=== PATIENT | female | born 1970 | race Caucasian/White ===

== ENCOUNTER 2017-07-20 01:07 | Emergency (ER) | payer MEDICAID ==
[2017-07-20 01:32] LABS: APPEARANCE CLEAR (CLEAR); BILIRUBIN NEGATIVE (NEGATIVE); COLOR STRAW (YELLOW); GLUCOSE NEGATIVE (NEGATIVE); KETONE NEGATIVE (NEGATIVE); NITRITE NEGATIVE (NEGATIVE); PROTEIN NEGATIVE (NEGATIVE); SPECIFIC GRAVITY 1.005 (1.005-1.020); UROBILINOGEN NORMAL (NORMAL)
[2017-07-20 01:49] LABS: BASOPHILS 2.5 % (0-2); EOSINOPHILS 1.2 % (0-7); HEMATOCRIT 38.2 % (36.0-48.0); HEMOGLOBIN 13.3 g/dL (12-16); IMMATURE GRANULOCYTES 0.3 % (0-5); MCH 33.2 pg (26.0-34.0); MCHC 34.8 g/dL (31.0-37.0); MCV 95.3 fL (80.0-100.0); MEAN PLATELET VOLUME 10.5 fL (7.4-10.4); RBC 4.01 10x6/uL (4.00-5.40); RDW 13.3 % (11.5-14.5)
[2017-07-20 01:51] LABS: PLATELET COUNT 245 10x3/uL (130-400)
[2017-07-20 02:06] LABS: ALBUMIN 3.8 g/dL (3.4-5.0); ALKALINE PHOSPHATASE 75 U/L (46-116); ALT (SGPT) 117 U/L (10-68); AMYLASE - SERUM 65 U/L (25-115); BILIRUBIN - TOTAL 0.27 mg/dL (0.2-1.3); CALC OSMOLALITY 274 mosm/kg (275-300); CALCIUM 8.6 mg/dL (8.5-10.1); CARBON DIOXIDE 21.1 mmol/L (21.0-32.0); CHLORIDE - SERUM 106 mmol/L (98-107); CREATININE - SERUM 0.7 mg/dL (0.6-1.3); GLUCOSE 96 mg/dL (74-106); LIPASE 202 U/L (73-393); POTASSIUM - SERUM 3.6 mmol/L (3.5-5.1); SODIUM 139 mmol/L (136-145); UREA NITROGEN 5 mg/dL (7-18); eGFR NON AFRICAN AMERICAN > 90 mL/min (90-120)
== END 2017-07-20 03:49 | disposition home or self-care (01) ==
LOC: D.ER 01:07
PROVIDERS: Family Medicine
DX: N83.209 Unspecified ovarian cyst, unspecified side (principal); C53.9 Malignant neoplasm of cervix uteri, unspecified; F17.200 Nicotine dependence, unspecified, uncomplicated

== ENCOUNTER 2017-08-05 22:14 | Emergency (ER) | payer MEDICAID ==
[2017-08-05 22:46] LABS: EOSINOPHILS 4.2 % (0-7); HEMATOCRIT 39.4 % (36.0-48.0); HEMOGLOBIN 13.6 g/dL (12-16); IMMATURE GRANULOCYTES 0.2 % (0-5); LYMPHOCYTES 59.3 % (15-50); MCH 33.6 pg (26.0-34.0); MCHC 34.5 g/dL (31.0-37.0); MCV 97.3 fL (80.0-100.0); MONOCYTES 10.5 % (2-11); NEUTROPHILS 23.8 % (40-80); PLATELET COUNT 233 10x3/uL (130-400); RBC 4.05 10x6/uL (4.00-5.40); RDW 13.7 % (11.5-14.5); WBC 5.4 10x3/uL (4.8-10.8)
[2017-08-05 23:00] LABS: ALBUMIN 3.9 g/dL (3.4-5.0); ALKALINE PHOSPHATASE 88 U/L (46-116); ALT (SGPT) 91 U/L (10-68); AMYLASE - SERUM 76 U/L (25-115); BILIRUBIN - TOTAL 0.43 mg/dL (0.2-1.3); CALC OSMOLALITY 276 mosm/kg (275-300); CALCIUM 8.8 mg/dL (8.5-10.1); CARBON DIOXIDE 26.5 mmol/L (21.0-32.0); CHLORIDE - SERUM 103 mmol/L (98-107); CREATININE - SERUM 0.7 mg/dL (0.6-1.3); GLUCOSE 92 mg/dL (74-106); LIPASE 236 U/L (73-393); POTASSIUM - SERUM 3.7 mmol/L (3.5-5.1); PROTEIN - SERUM 8.1 g/dL (6.4-8.2); SODIUM 139 mmol/L (136-145); UREA NITROGEN 9 mg/dL (7-18); eGFR NON AFRICAN AMERICAN > 90 mL/min (90-120)
== END 2017-08-05 23:35 | disposition home or self-care (01) ==
LOC: D.ER 22:14
PROVIDERS: Emergency Medicine
DX: R10.9 Unspecified abdominal pain (principal); Z85.41 Personal history of malignant neoplasm of cervix uteri; F17.200 Nicotine dependence, unspecified, uncomplicated

== ENCOUNTER 2017-11-03 17:40 | Emergency (ER) | payer MEDICAID ==
[~2017-11-03] VITALS: Ht 160 cm; Wt 53.2 kg
[2017-11-03 18:01] VITALS: Ht 160 cm; Wt 53.2 kg
[2017-11-03 18:29] LABS: BASOPHILS 1.1 % (0-2); EOSINOPHILS 3.3 % (0-7); HEMATOCRIT 38.7 % (36.0-48.0); HEMOGLOBIN 13.4 g/dL (12-16); IMMATURE GRANULOCYTES 0.4 % (0-5); LYMPHOCYTES 48.4 % (15-50); MCH 34.1 pg (26.0-34.0); MCHC 34.6 g/dL (31.0-37.0); MCV 98.5 fL (80.0-100.0); MEAN PLATELET VOLUME 10.8 fL (7.4-10.4); MONOCYTES 6.8 % (2-11); PLATELET COUNT 232 10x3/uL (130-400); RBC 3.93 10x6/uL (4.00-5.40); RDW 13.8 % (11.5-14.5); WBC 7.4 10x3/uL (4.8-10.8)
[2017-11-03 18:59] LABS: ALBUMIN 3.7 g/dL (3.4-5.0); ALKALINE PHOSPHATASE 91 U/L (46-116); ALT (SGPT) 76 U/L (10-68); BILIRUBIN - TOTAL 0.17 mg/dL (0.2-1.3); CALC OSMOLALITY 278 mosm/kg (275-300); CALCIUM 9.1 mg/dL (8.5-10.1); CARBON DIOXIDE 21.9 mmol/L (21.0-32.0); CHLORIDE - SERUM 107 mmol/L (98-107); CREATININE - SERUM 0.7 mg/dL (0.6-1.3); GLUCOSE 103 mg/dL (74-106); LIPASE 206 U/L (73-393); POTASSIUM - SERUM 3.4 mmol/L (3.5-5.1); PROTEIN - SERUM 7.9 g/dL (6.4-8.2); SODIUM 141 mmol/L (136-145); UREA NITROGEN 8 mg/dL (7-18); eGFR NON AFRICAN AMERICAN > 90 mL/min (90-120)
[2017-11-03 19:21] LABS: APPEARANCE CLEAR (CLEAR); BILIRUBIN NEGATIVE (NEGATIVE); COLOR STRAW (YELLOW); GLUCOSE NEGATIVE (NEGATIVE); KETONE NEGATIVE (NEGATIVE); NITRITE NEGATIVE (NEGATIVE); PROTEIN NEGATIVE (NEGATIVE); UROBILINOGEN NORMAL (NORMAL)
[2017-11-03 19:47] LABS: UDS - AMPHET NEGATIVE QUAL (NEGATIVE); UDS - BARB NEGATIVE QUAL (NEGATIVE); UDS - BENZO NEGATIVE QUAL (NEGATIVE); UDS - COCAINE NEGATIVE QUAL (NEGATIVE); UDS - OPIATE NEGATIVE QUAL (NEGATIVE); UDS - PCP NEGATIVE QUAL (NEGATIVE); UDS - THC NEGATIVE QUAL (NEGATIVE)
[2017-11-03] MEDS ORDERED: IBUPROFEN800 MG PO (20:42)
[2017-11-03 20:58] VITALS: BP 133/82
== END 2017-11-03 20:53 | disposition home or self-care (01) ==
LOC: D.ER 17:40
PROVIDERS: Family Medicine
DX: R10.9 Unspecified abdominal pain (principal); F10.129 Alcohol abuse with intoxication, unspecified; N28.89 Other specified disorders of kidney and ureter; C53.9 Malignant neoplasm of cervix uteri, unspecified; F17.200 Nicotine dependence, unspecified, uncomplicated

== ENCOUNTER 2017-11-21 12:25 | Emergency (ER) | payer MEDICAID ==
[~2017-11-21] VITALS: Ht 160 cm; Wt 56.7 kg
[~2017-11-21 12:25] MED LIST: IBUPROFEN800 MG PO
[2017-11-21 12:37] VITALS: Ht 160 cm; Wt 56.7 kg
[2017-11-21 13:57] LABS: HEMATOCRIT 37.9 % (36.0-48.0); HEMOGLOBIN 13.8 g/dL (12-16); MCHC 36.4 g/dL (31.0-37.0); MCV 96.2 fL (80.0-100.0); MEAN PLATELET VOLUME 10.5 fL (7.4-10.4); PLATELET COUNT 187 10x3/uL (130-400); RBC 3.94 10x6/uL (4.00-5.40); RDW 13.1 % (11.5-14.5)
[2017-11-21 13:57] LABS: UDS - AMPHET NEGATIVE QUAL (NEGATIVE); UDS - BARB NEGATIVE QUAL (NEGATIVE); UDS - BENZO NEGATIVE QUAL (NEGATIVE); UDS - COCAINE NEGATIVE QUAL (NEGATIVE); UDS - OPIATE NEGATIVE QUAL (NEGATIVE); UDS - PCP NEGATIVE QUAL (NEGATIVE); UDS - THC NEGATIVE QUAL (NEGATIVE)
[2017-11-21 14:12] LABS: ALBUMIN 3.7 g/dL (3.4-5.0); ALKALINE PHOSPHATASE 90 U/L (46-116); ALT (SGPT) 102 U/L (10-68); BILIRUBIN - TOTAL 0.36 mg/dL (0.2-1.3); CALC OSMOLALITY 274 mosm/kg (275-300); CALCIUM 8.1 mg/dL (8.5-10.1); CARBON DIOXIDE 23.5 mmol/L (21.0-32.0); CHLORIDE - SERUM 105 mmol/L (98-107); CREATININE - SERUM 0.8 mg/dL (0.6-1.3); GLUCOSE 92 mg/dL (74-106); LIPASE 144 U/L (73-393); PROTEIN - SERUM 7.8 g/dL (6.4-8.2); SODIUM 139 mmol/L (136-145); UREA NITROGEN 3 mg/dL (7-18); eGFR NON AFRICAN AMERICAN 81 mL/min (90-120)
[2017-11-21 14:20] LABS: BASOPHILS 1 % (0-2); EOSINOPHILS 3 % (0-7); LYMPHOCYTES 46 % (15-50); MONOCYTES 11 % (2-11); NEUTROPHILS 38 % (40-80); PLATELET ESTIMATE NORMAL
[2017-11-21 19:26] LABS: POTASSIUM - SERUM 3.3 mmol/L (3.5-5.1)
[2017-11-22 00:21] LABS: POTASSIUM - SERUM 3.5 mmol/L (3.5-5.1)
[2017-11-22 01:59] VITALS: BP 103/72
== END 2017-11-22 02:55 ==
LOC: D.ER 12:25
PROVIDERS: Emergency Medicine; Family Medicine
DX: R45.851 Suicidal ideations (principal); F10.129 Alcohol abuse with intoxication, unspecified; E87.6 Hypokalemia; C55 Malignant neoplasm of uterus, part unspecified; Z85.41 Personal history of malignant neoplasm of cervix uteri; Z85.528 Personal history of other malignant neoplasm of kidney

== ENCOUNTER 2017-12-24 08:31 | Emergency (ER) | payer MEDICAID ==
[~2017-12-24] VITALS: Ht 160 cm; Wt 53.2 kg
[2017-12-24 08:36] VITALS: Ht 160 cm; Wt 53.2 kg
[2017-12-24] MEDS ORDERED: CYCLOBENZAPRINE10 MG PO (09:18)
[2017-12-24 09:35] VITALS: BP 110/73
== END 2017-12-24 09:35 | disposition home or self-care (01) ==
LOC: D.ER 08:31
DX: M43.6 Torticollis (principal); Z85.41 Personal history of malignant neoplasm of cervix uteri; F17.200 Nicotine dependence, unspecified, uncomplicated

== ENCOUNTER → 2018-01-06 14:07 | Outpatient (CLI) | payer MEDICAID ==
[2017-12-24 08:36] VITALS: BMI 20.7
[~2018-01-06 14:07] MED LIST changes: +CYCLOBENZAPRINE10 MG PO; +REMERON45 MG PO
== END | disposition home or self-care (01) ==
LOC: D.MRI 14:07
DX: M54.2 Cervicalgia (principal)

== ENCOUNTER 2018-01-06 15:06 | Emergency (ER) | payer MEDICAID ==
[~2018-01-06] VITALS: Ht 160 cm; Wt 52.7 kg
[~2018-01-06 15:06] MED LIST changes: -REMERON45 MG PO
[2018-01-06 15:11] VITALS: Ht 160 cm; Wt 52.7 kg
[2018-01-06] MEDS ORDERED: REMERON45 MG PO (15:15)
[2018-01-06 17:22] VITALS: BP 154/76
== END 2018-01-06 16:45 | disposition home or self-care (01) ==
LOC: D.ER 15:06
DX: M54.2 Cervicalgia (principal); Z85.520 Personal history of malignant carcinoid tumor of kidney; Z85.41 Personal history of malignant neoplasm of cervix uteri; F17.200 Nicotine dependence, unspecified, uncomplicated

== ENCOUNTER 2018-01-07 23:33 | Emergency (ER) | payer MEDICAID ==
[~2018-01-07] VITALS: Ht 160 cm; Wt 54.5 kg
[~2018-01-07 23:33] MED LIST changes: +REMERON45 MG PO
[2018-01-07 23:35] VITALS: BP 134/82; Ht 160 cm; Wt 54.5 kg
== END 2018-01-08 00:18 | disposition left against medical advice (07) ==
LOC: D.ER 23:33
DX: R45.5 Hostility (principal); Z76.5 Malingerer [conscious simulation]; M79.1 Myalgia; G40.909 Epilepsy, unspecified, not intractable, without status epilepticus; F17.200 Nicotine dependence, unspecified, uncomplicated

== ENCOUNTER 2018-04-02 12:38 | Emergency (ER) | payer MEDICAID ==
[~2018-04-02] VITALS: Ht 160 cm; Wt 54.5 kg
[2018-04-02 13:07] VITALS: Ht 160 cm; Wt 54.5 kg
[2018-04-02 13:27] LABS: BASOPHILS 0.4 % (0-2); EOSINOPHILS 0.2 % (0-7); HEMATOCRIT 41.9 % (36.0-48.0); HEMOGLOBIN 14.5 g/dL (12-16); IMMATURE GRANULOCYTES 0.2 % (0-5); LYMPHOCYTES 8.6 % (15-50); MCH 32.2 pg (26.0-34.0); MCHC 34.6 g/dL (31.0-37.0); MCV 93.1 fL (80.0-100.0); MEAN PLATELET VOLUME 10.3 fL (7.4-10.4); NEUTROPHILS 83.6 % (40-80); PLATELET COUNT 193 10x3/uL (130-400); RDW 12.9 % (11.5-14.5); WBC 12.7 10x3/uL (4.8-10.8)
[2018-04-02 13:34] LABS: APPEARANCE TURBID (CLEAR); BILIRUBIN NEGATIVE (NEGATIVE); COLOR YELLOW (YELLOW); GLUCOSE NEGATIVE (NEGATIVE); KETONE NEGATIVE (NEGATIVE); NITRITE POSITIVE (NEGATIVE); PROTEIN 2+ mg/dL (NEGATIVE); UROBILINOGEN NORMAL (NORMAL)
[2018-04-02 13:36] LABS: AMORPHOUS SEDIMENT <1+ /lpf (NONE SEEN); BACTERIA MANY /hpf (NONE SEEN); EPITHELIAL CELLS 0-5 /hpf (0-5); MUCUS <1+ /lpf (NONE SEEN); WHITE CELLS - URINE >50 /hpf (0-5)
[2018-04-02 13:41] LABS: ALBUMIN 3.7 g/dL (3.4-5.0); ALKALINE PHOSPHATASE 82 U/L (46-116); ALT (SGPT) 61 U/L (10-68); BILIRUBIN - TOTAL 1.03 mg/dL (0.2-1.3); CALC OSMOLALITY 267 mosm/kg (275-300); CALCIUM 8.7 mg/dL (8.5-10.1); CARBON DIOXIDE 23.6 mmol/L (21.0-32.0); CHLORIDE - SERUM 100 mmol/L (98-107); CREATININE - SERUM 0.8 mg/dL (0.6-1.3); GLUCOSE 108 mg/dL (74-106); POTASSIUM - SERUM 3.2 mmol/L (3.5-5.1); SODIUM 134 mmol/L (136-145); UREA NITROGEN 9 mg/dL (7-18); eGFR NON AFRICAN AMERICAN 81 mL/min (90-120)
[2018-04-02] MEDS ORDERED: FLAGYL500 MG PO (14:21)
[2018-04-02] MEDS ORDERED: MACROBID100 MG PO (14:21)
[2018-04-02] MEDS ORDERED: K-TAB10 MEQ PO (15:00)
[2018-04-02 15:50] VITALS: BP 118/68
== END 2018-04-02 15:53 | disposition home or self-care (01) ==
LOC: D.ER 12:38
PROVIDERS: Emergency Medicine
DX: N39.0 Urinary tract infection, site not specified (principal); N76.0 Acute vaginitis; B96.89 Other specified bacterial agents as the cause of diseases classified elsewhere; R11.0 Nausea; R51 Headache; R35.0 Frequency of micturition; Z85.41 Personal history of malignant neoplasm of cervix uteri; F17.200 Nicotine dependence, unspecified, uncomplicated

== ENCOUNTER 2018-04-26 11:23 | Inpatient (IN) | payer SELFPAY ==
[~2018-04-26] VITALS: Ht 160 cm; Wt 54.4 kg
--- NOTE | ~2018-04-26 | MORECARE ---
CASE MANAGEMENT DISCHARGE SUMMARY PATIENT: RICKI AREVALO UNIT: [id number] ADM DATE: 04/26/18 AGE: 47 : 70 SEX: F ROOM/BED: D.4443 AUTHOR: LYDOC PHYSICIAN: REFERRING PHYSICIAN: BLU WALLER MD DATE OF SERVICE: 04/28/18 Discharge Plan Patient Name: RICKI AREVALO Facility: [facility]:[place] : 1970 Planned Disposition: Home Anticipated Discharge Date: Discharge Date: Expected LOS: Initial Reviewer: [id number] Initial Review Date: 04/26/2018 Generated: 04/28/18 9:18 am Comments DCP- Discharge Planning Updated by [email or web address]: Sánchez Feliciano on 04/28/18 7:[address] Patient Name: RICKI AREVALO Encounter No: [id number] : 1970 Primary Insurance: UNINSURED DISCOUNT PLAN Anticipated DC Date: Planned Disposition: Home DCP follow-up note: PT PLANS TO DISCHARGE HOME WITH SPOUSE, PT HAS NO ANTICIPATED DISCHARGE NEEDS. CM TO FOLLOW AND ASSIST IF NEEDED. CM FAXED LETTER TO [facility] AT [phone], REQUESTED BY PT 04-27-18. Children'S Entertainer: Sánchez Feliciano DCP- Discharge Planning Updated by [id number]: Sánchez Feliciano on 04/27/18 3:[address] Patient Name: RICKI AREVALO Admission Status: ER Accout number: [id number] Admission Date: 04-26-2018 : 1970 Admission Diagnosis: Attending: BLU WALLER Current LOS: 1 Anticipated DC Date: Planned Disposition: Home Primary Insurance: UNINSURED DISCOUNT PLAN Discharge Planning Comments: CM RECEIVED REQUEST FOR PT TO GET LETTER FOR HER DAUGHTER TO TAKE TO COURT THAT WOULD INDICATE PT IS IN HOSPITAL FOR COURT DATE OF TOMORROW THAT PT IS REQUIRED TO ATTEND IN THE [facility] COURT. CM MET WITH PT IN ROOM TO DISCUSS DISCHARGE PLANNING AND NEEDS. PT REPORTS LIVING AT HOME INDEPENDENTLY WITH HER SPOUSE. PT HAS NO MEDICAL EQUIPMENT AND NO OUTSIDE SERVICES ASSISTING IN THE HOME. CM DISCUSSED AVAILABILITY OF HOME HEALTH, REHAB SERVICES AND MEDICAL EQUIPMENT. PT DENIES DISCHARGE NEEDS, REPORTS HER SPOUSE WILL PICK HER UP FOR DISCHARGE HOME. CM PROVIDED REQUESTED LETTER INDICATING PT IS HOSPITAL TODAY FOR [facility]. PT PLANS TO DISCHARGE HOME WITH SPOUSE, PT HAS NOT ANTICIPATED DISCHARGE NEEDS. CM TO FOLLOW AND ASSIST IF NEEDED. CM WILL FAX LETTER TO [facility] ON 04-28-18 IF PT IS STILL IN THE HOSPTIAL. FAX IS [phone]. Children'S Entertainer: Sánchez Feliciano DCPIA - Discharge Planning Initial Assessment Updated by [id number]: Sánchez Feliciano on 04/27/18 4:48 pm * Is the patient Alert and Oriented? Yes * How many steps to enter\exit or inside your home? NONE * PCP DR. PRIETO * Pharmacy [facility] * Preadmission Environment Home with Family * ADLs Independent * Equipment None * Other Equipment NO MEDICAL EQUIPMENT PROVIDER PREFERENCE * List name and contact numbers for known caregivers / representatives who currently or will assist patient after discharge: VEENA NGUYEN, SPOUSE, * Verbal permission to speak to the caregivers and representatives has been obtained from the patient. Yes * Community resources currently utilized None * Please name any agencies selected above. NONE * Additional services required to return to the preadmission environment? No * Can the patient safely return to the preadmission environment? Yes * Has this patient been hospitalized within the prior 30 days at any hospital? No Last DP export: 04/27/18 3:57 Patient Name: RICKI AREVALO Page 42748 at 0818 All edits/amendments must be made on the electronic document DICTATION DATE: 04/28/18816 WINDOWS SERVER SPECIALIST: MORIAH 04/28/18816 RPT#: [id number] DC DATE: STATUS: ADM IN [facility] [address] [place] [address] END OF REPORT
--- NOTE | ~2018-04-26 | MORECARE ---
CASE MANAGEMENT DISCHARGE SUMMARY PATIENT: RICKI AREVALO UNIT: [id number] ADM DATE: 04/26/18 AGE: 47 : 70 SEX: F ROOM/BED: D.1548 AUTHOR: LY,DOC PHYSICIAN: REFERRING PHYSICIAN: BLU WALLER MD DATE OF SERVICE: 04/29/18 Discharge Plan Patient Name: RICKI AREVALO Facility: [facility]:[place] : 1970 Planned Disposition: Home Anticipated Discharge Date: 04/29/18 Discharge Date: 04/29/2018 Expected LOS: 3 Initial Reviewer: [id number] Initial Review Date: 04/26/2018 Generated: 04/29/18 6:24 pm Comments DCP- Discharge Planning Updated by [id number]: Sánchez Mendosa on 04/29/18 4:[address] Patient Name: RICKI AREVALO Encounter No: [id number] : 1970 Primary Insurance: UNINSURED DISCOUNT PLAN Anticipated DC Date: 04-29-2018 Planned Disposition: Home DCP follow-up note: CM SPOKE TO BEDSIDE NURSE WHO INFORMED CM THAT PT WANTED TO SPEAK TO CM REGARDING NEED OF MEDICAL INSURANCE. CM SPOKE TO PT IN ROOM WHO REPORTS SHE HAD INSURANCE UNTIL March AND WOULD LIKE TO APPLY FOR MEDICAID AND THINKS SOMEONE AT THE HOSPITAL WILL DO THIS FOR HER. CM SPOKE TO LEE OF MED DATA AT [facility] WHO ADVISED CM THAT PT WAS NON COMPLIANT WITH THE WORK REQUIREMENT FOR THE PAST THREE MONTHS AND IS INELIGIBLE TO APPLY FOR MEDICAID UNTIL MAY 17, 2018. PT NOTIFIED. CM PROVIDED PT WITH [employer] INFORMATION WELL INSURANCE BROKERS LISTED ON WEBSITE TO ASSIST PT WITH GETTING INSURANCE. CM ADVISED PT THAT OPEN ENROLLMENT ENDS TOMORROW AND PT NEEDS TO ACT TODAY. PT STATES SHE WILL CALL HER QUALCHOICE PROVIDER FIRST TO SEE IF THEY CAN HELP AND IF NOT, CONTACT [employer] DEBRANDER. PT DENIES FURHTER NEEDS, SPOUSE TO TRANSPORT HOME AT DISCHARGE. SÁNCHEZ MENDOSA, CASE MANAGEMENT DCP- Discharge Planning Updated by [id number]: Sánchez Mendosa on 04/28/18 7:[address] Patient Name: RICKI AREVALO Encounter No: [id number] : 1970 Primary Insurance: UNINSURED DISCOUNT PLAN Anticipated DC Date: Planned Disposition: Home DCP follow-up note: PT PLANS TO DISCHARGE HOME WITH SPOUSE, PT HAS NO ANTICIPATED DISCHARGE NEEDS. CM TO FOLLOW AND ASSIST IF NEEDED. CM FAXED LETTER TO [facility] AT [phone], REQUESTED BY PT 04-27-18. Crime Scene Examiner: Sánchez Mendosa DCP- Discharge Planning Updated by [email or web address]: Sánchez Mendosa on 04/27/18 3:[address] Patient Name: RICKI AREVALO Admission Status: ER Accout number: [id number] Admission Date: 04-26-2018 : 1970 Admission Diagnosis: Attending: BLU WALLER Current LOS: 1 Anticipated DC Date: Planned Disposition: Home Primary Insurance: UNINSURED DISCOUNT PLAN Discharge Planning Comments: CM RECEIVED REQUEST FOR PT TO GET LETTER FOR HER DAUGHTER TO TAKE TO COURT THAT WOULD INDICATE PT IS IN HOSPITAL FOR COURT DATE OF TOMORROW THAT PT IS REQUIRED TO ATTEND IN THE [facility]. CM MET WITH PT IN ROOM TO DISCUSS DISCHARGE PLANNING AND NEEDS. PT REPORTS LIVING AT HOME INDEPENDENTLY WITH HER SPOUSE. PT HAS NO MEDICAL EQUIPMENT AND NO OUTSIDE SERVICES ASSISTING IN THE HOME. CM DISCUSSED AVAILABILITY OF HOME HEALTH, REHAB SERVICES AND MEDICAL EQUIPMENT. PT DENIES DISCHARGE NEEDS, REPORTS HER SPOUSE WILL PICK HER UP FOR DISCHARGE HOME. CM PROVIDED REQUESTED LETTER INDICATING PT IS HOSPITAL TODAY FOR [facility]. PT PLANS TO DISCHARGE HOME WITH SPOUSE, PT HAS NOT ANTICIPATED DISCHARGE NEEDS. CM TO FOLLOW AND ASSIST IF NEEDED. CM WILL FAX LETTER TO [facility] ON 04-28-18 IF PT IS STILL IN THE HOSPTIAL. FAX IS [phone]. Crime Scene Examiner: Sánchez Mendosa DCPIA - Discharge Planning Initial Assessment Updated by [id number]: Sánchez Mendosa on 04/27/18 4:48 pm * Is the patient Alert and Oriented? Yes * How many steps to enter\exit or inside your home? NONE * PCP DR. PRIETO * Pharmacy [facility] * Preadmission Environment Home with Family * ADLs Independent * Equipment None * Other Equipment NO MEDICAL EQUIPMENT PROVIDER PREFERENCE * List name and contact numbers for known caregivers / representatives who currently or will assist patient after discharge: VEENA NGUYEN, SPOUSE, * Verbal permission to speak to the caregivers and representatives has been obtained from the patient. Yes * Community resources currently utilized None * Please name any agencies selected above. NONE * Additional services required to return to the preadmission environment? No * Can the patient safely return to the preadmission environment? Yes * Has this patient been hospitalized within the prior 30 days at any hospital? No Last DP export: 04/28/18 7:18 Patient Name: RICKI AREVALO Page [id number] at 1724 All edits/amendments must be made on the electronic document DICTATION DATE: 04/29/181723 DESIGN ANALYST: MORIAH 04/29/181723 RPT#: [id number] DC DATE:04/29/18 STATUS: DIS IN [facility] [address] [place] [address] END OF REPORT
--- NOTE | ~2018-04-26 | MORECARE ---
CASE MANAGEMENT DISCHARGE SUMMARY PATIENT: RICKI AREVALO UNIT: [id number] ADM DATE: 04/26/18 AGE: 47 : 70 SEX: F ROOM/BED: D.2709 AUTHOR: LY,DOC PHYSICIAN: REFERRING PHYSICIAN: BLU WALLER MD DATE OF SERVICE: 04/27/18 Discharge Plan Patient Name: RICKI AREVALO Facility: [facility]:[place] : 1970 Planned Disposition: Home Anticipated Discharge Date: Discharge Date: Expected LOS: Initial Reviewer: [email or web address] Initial Review Date: 04/26/2018 Generated: 04/27/18 5:57 pm Comments DCP- Discharge Planning Updated by [id number]: Sánchez Feliciano on 04/27/18 3:[address] Patient Name: RICKI AREVALO Admission Status: ER Accout number: [id number] Admission Date: 04-26-2018 : 1970 Admission Diagnosis: Attending: BLU WALLER Current LOS: 1 Anticipated DC Date: Planned Disposition: Home Primary Insurance: UNINSURED DISCOUNT PLAN Discharge Planning Comments: CM RECEIVED REQUEST FOR PT TO GET LETTER FOR HER DAUGHTER TO TAKE TO COURT THAT WOULD INDICATE PT IS IN HOSPITAL FOR COURT DATE OF TOMORROW THAT PT IS REQUIRED TO ATTEND IN THE [facility]. CM MET WITH PT IN ROOM TO DISCUSS DISCHARGE PLANNING AND NEEDS. PT REPORTS LIVING AT HOME INDEPENDENTLY WITH HER SPOUSE. PT HAS NO MEDICAL EQUIPMENT AND NO OUTSIDE SERVICES ASSISTING IN THE HOME. CM DISCUSSED AVAILABILITY OF HOME HEALTH, REHAB SERVICES AND MEDICAL EQUIPMENT. PT DENIES DISCHARGE NEEDS, REPORTS HER SPOUSE WILL PICK HER UP FOR DISCHARGE HOME. CM PROVIDED REQUESTED LETTER INDICATING PT IS HOSPITAL TODAY FOR [facility]. PT PLANS TO DISCHARGE HOME WITH SPOUSE, PT HAS NOT ANTICIPATED DISCHARGE NEEDS. CM TO FOLLOW AND ASSIST IF NEEDED. CM WILL FAX LETTER TO [facility] ON 04-28-18 IF PT IS STILL IN THE HOSPTIAL. FAX IS [phone]. Cardiovascular Rn: Sánchez Feliciano DCPIA - Discharge Planning Initial Assessment Updated by [id number]: Sánchez Feliciano on 04/27/18 4:48 pm * Is the patient Alert and Oriented? Yes * How many steps to enter\exit or inside your home? NONE * PCP DR. PRIETO * Pharmacy [facility] [place] * Preadmission Environment Home with Family * ADLs Independent * Equipment None * Other Equipment NO MEDICAL EQUIPMENT PROVIDER PREFERENCE * List name and contact numbers for known caregivers / representatives who currently or will assist patient after discharge: VEENA NGUYEN, SPOUSE, * Verbal permission to speak to the caregivers and representatives has been obtained from the patient. Yes * Community resources currently utilized None * Please name any agencies selected above. NONE * Additional services required to return to the preadmission environment? No * Can the patient safely return to the preadmission environment? Yes * Has this patient been hospitalized within the prior 30 days at any hospital? No External Providers External Provider: OTHER-OTHER Next Contact Date: 04/28/2018 Service Request Date: Service Type: Resolution: Reviewer: Comments: Patient Name: RICKI AREVALO Page 89529 at 1657 All edits/amendments must be made on the electronic document DICTATION DATE: 04/27/181656 OIL PUMP STATION OPERATOR CHIEF: MORIAH 04/27/181656 RPT#: [id number] DC DATE: STATUS: ADM IN [facility] [address] [place] [address] END OF REPORT
[~2018-04-26 11:23] MED LIST changes: +FLAGYL500 MG PO; +K-TAB10 MEQ PO; +MACROBID100 MG PO
[2018-04-26] MEDS ORDERED: KLONOPIN1 MG PO (11:34)
[2018-04-26 12:13] LABS: ALBUMIN 3.6 g/dL (3.4-5.0); ANION GAP 12.2 mmol/L (8-16); BILIRUBIN - TOTAL 0.55 mg/dL (0.2-1.3); CALCIUM 8.5 mg/dL (8.5-10.1); CREATININE - SERUM 0.9 mg/dL (0.6-1.3); POTASSIUM - SERUM 3.2 mmol/L (3.5-5.1); PROTEIN - SERUM 8.8 g/dL (6.4-8.2)
[2018-04-26 12:15] LABS: APPEARANCE SL CLDY (CLEAR); BACTERIA MODERATE /hpf (NONE SEEN); BILIRUBIN NEGATIVE (NEGATIVE); COLOR YELLOW (YELLOW); GLUCOSE NEGATIVE (NEGATIVE); KETONE NEGATIVE (NEGATIVE); MUCUS <1+ /lpf (NONE SEEN); NITRITE NEGATIVE (NEGATIVE); PROTEIN TRACE mg/dL (NEGATIVE); RED CELLS - URINE OCC /hpf (0-5); SPECIFIC GRAVITY 1.015 (1.005-1.020); UROBILINOGEN NORMAL (NORMAL)
[2018-04-26 12:17] LABS: BASOPHILS 1.5 % (0-2); EOSINOPHILS 1.6 % (0-7); HEMATOCRIT 40.9 % (36.0-48.0); HEMOGLOBIN 13.7 g/dL (12-16); IMMATURE GRANULOCYTES 0.3 % (0-5); LYMPHOCYTES 40.3 % (15-50); MCH 30.6 pg (26.0-34.0); MCHC 33.5 g/dL (31.0-37.0); MCV 91.5 fL (80.0-100.0); MEAN PLATELET VOLUME 10.7 fL (7.4-10.4); MONOCYTES 10.4 % (2-11); NEUTROPHILS 45.9 % (40-80); PLATELET COUNT 316 10x3/uL (130-400); RBC 4.47 10x6/uL (4.00-5.40); RDW 13.7 % (11.5-14.5); WBC 6.8 10x3/uL (4.8-10.8)
[2018-04-26] MEDS ORDERED: ZANAFLEX4 MG PO (16:23)
[2018-04-26] MEDS ORDERED: K-DUR20 MEQ PO (16:24)
[2018-04-26] MEDS ORDERED: HYDROXYZINE HCL50 MG PO (16:25)
[2018-04-26 16:37] VITALS: BP 149/95
[2018-04-26 17:28] VITALS: BP 149/95; BMI 21.3
[2018-04-26 20:00] VITALS: BP 128/68
[2018-04-27] VITALS: BP 123/81
[2018-04-27 05:24] LABS: HEMATOCRIT 34.7 % (36.0-48.0); HEMOGLOBIN 11.5 g/dL (12-16); MCH 30.4 pg (26.0-34.0); MCHC 33.1 g/dL (31.0-37.0); MCV 91.8 fL (80.0-100.0); MEAN PLATELET VOLUME 10.4 fL (7.4-10.4); RBC 3.78 10x6/uL (4.00-5.40)
[2018-04-27 05:26] LABS: PLATELET COUNT 243 10x3/uL (130-400); WBC 4.9 10x3/uL (4.8-10.8)
[2018-04-27 05:30] VITALS: BP 138/84
[2018-04-27 05:39] LABS: ALKALINE PHOSPHATASE 64 U/L (46-116); BILIRUBIN - TOTAL 0.48 mg/dL (0.2-1.3); CALCIUM 7.3 mg/dL (8.5-10.1); CARBON DIOXIDE 26.6 mmol/L (21.0-32.0); CHLORIDE - SERUM 105 mmol/L (98-107); CREATININE - SERUM 0.8 mg/dL (0.6-1.3); SODIUM 139 mmol/L (136-145); UREA NITROGEN 10 mg/dL (7-18); eGFR NON AFRICAN AMERICAN 81 mL/min (90-120)
[2018-04-27 05:40] LABS: ALBUMIN 2.5 g/dL (3.4-5.0); ALT (SGPT) 18 U/L (10-68); CALC OSMOLALITY 275 mosm/kg (275-300); GLUCOSE 82 mg/dL (74-106); POTASSIUM - SERUM 3.9 mmol/L (3.5-5.1); PROTEIN - SERUM 6.3 g/dL (6.4-8.2)
[2018-04-27 05:52] LABS: EOSINOPHILS 3 % (0-7); LYMPHOCYTES 60 % (15-50); MONOCYTES 5 % (2-11); NEUTROPHILS 32 % (40-80); PLATELET ESTIMATE NORMAL
[2018-04-27 07:52] VITALS: BP 126/51
[2018-04-27 11:30] VITALS: BP 121/70
[2018-04-27 15:07] VITALS: Ht 160 cm; Wt 54.4 kg
[2018-04-27 15:54] VITALS: BP 120/66
[2018-04-27 20:00] VITALS: BP 137/78
[2018-04-28] VITALS: BP 108/74
[2018-04-28 04:00] VITALS: BP 138/81
[2018-04-28 05:16] LABS: BASOPHILS 0.7 % (0-2); EOSINOPHILS 5.8 % (0-7); HEMATOCRIT 30.6 % (36.0-48.0); IMMATURE GRANULOCYTES 0.2 % (0-5); LYMPHOCYTES 51.9 % (15-50); MCH 30.2 pg (26.0-34.0); MCHC 32.7 g/dL (31.0-37.0); MCV 92.4 fL (80.0-100.0); MEAN PLATELET VOLUME 10.5 fL (7.4-10.4); MONOCYTES 11.7 % (2-11); NEUTROPHILS 29.7 % (40-80); PLATELET COUNT 206 10x3/uL (130-400); RBC 3.31 10x6/uL (4.00-5.40); RDW 13.7 % (11.5-14.5); WBC 4.3 10x3/uL (4.8-10.8)
[2018-04-28 06:00] LABS: ALBUMIN 2.2 g/dL (3.4-5.0); ALKALINE PHOSPHATASE 72 U/L (46-116); ALT (SGPT) 18 U/L (10-68); BILIRUBIN - TOTAL 0.33 mg/dL (0.2-1.3); CALC OSMOLALITY 275 mosm/kg (275-300); CALCIUM 7.5 mg/dL (8.5-10.1); CARBON DIOXIDE 28.9 mmol/L (21.0-32.0); CHLORIDE - SERUM 104 mmol/L (98-107); CREATININE - SERUM 0.8 mg/dL (0.6-1.3); GLUCOSE 82 mg/dL (74-106); POTASSIUM - SERUM 3.6 mmol/L (3.5-5.1); PROTEIN - SERUM 5.7 g/dL (6.4-8.2); SODIUM 139 mmol/L (136-145); UREA NITROGEN 10 mg/dL (7-18); eGFR NON AFRICAN AMERICAN 81 mL/min (90-120)
[2018-04-28 07:53] VITALS: BP 150/99
[2018-04-28 11:41] VITALS: BP 132/76
[2018-04-28 15:02] VITALS: BP 138/85
[2018-04-28 20:00] VITALS: BP 144/86
[2018-04-29] VITALS: BP 127/73
[2018-04-29 04:00] VITALS: BP 139/93
[2018-04-29 06:20] LABS: BASOPHILS 0.5 % (0-2); HEMOGLOBIN 10.2 g/dL (12-16); IMMATURE GRANULOCYTES 0.2 % (0-5); LYMPHOCYTES 40.4 % (15-50); MCH 29.9 pg (26.0-34.0); MCHC 32.9 g/dL (31.0-37.0); MCV 90.9 fL (80.0-100.0); MEAN PLATELET VOLUME 10.7 fL (7.4-10.4); MONOCYTES 10.3 % (2-11); NEUTROPHILS 43.6 % (40-80); PLATELET COUNT 200 10x3/uL (130-400); RBC 3.41 10x6/uL (4.00-5.40); RDW 13.3 % (11.5-14.5)
[2018-04-29 06:29] LABS: WBC 5.6 10x3/uL (4.8-10.8)
[2018-04-29 07:10] LABS: ALBUMIN 2.2 g/dL (3.4-5.0); ALKALINE PHOSPHATASE 74 U/L (46-116); ALT (SGPT) 22 U/L (10-68); BILIRUBIN - TOTAL 0.27 mg/dL (0.2-1.3); CALC OSMOLALITY 274 mosm/kg (275-300); CALCIUM 7.8 mg/dL (8.5-10.1); CARBON DIOXIDE 29.2 mmol/L (21.0-32.0); CHLORIDE - SERUM 103 mmol/L (98-107); CREATININE - SERUM 0.8 mg/dL (0.6-1.3); GLUCOSE 84 mg/dL (74-106); POTASSIUM - SERUM 3.8 mmol/L (3.5-5.1); PROTEIN - SERUM 5.8 g/dL (6.4-8.2); SODIUM 139 mmol/L (136-145); UREA NITROGEN 8 mg/dL (7-18); eGFR NON AFRICAN AMERICAN 81 mL/min (90-120)
[2018-04-29 08:34] VITALS: BP 139/87
[2018-04-29 11:28] VITALS: BP 123/78
[2018-04-29] MEDS ORDERED: KEFLEX500 MG PO (13:57)
[2018-04-29] MEDS ORDERED: ULTRAM50 MG PO (14:51)
[2018-04-29 16:09] VITALS: BP 150/89
== END 2018-04-29 16:31 | disposition home or self-care (01) | DRG 690 ==
LOC: D.ER 11:23 → D.EDHOLD 14:57 → D.M2 14:57
PROVIDERS: Family Medicine
DX: N39.0 Urinary tract infection, site not specified (principal); K92.0 Hematemesis; R56.9 Unspecified convulsions; K73.9 Chronic hepatitis, unspecified; I10 Essential (primary) hypertension; F32.9 Major depressive disorder, single episode, unspecified; F41.9 Anxiety disorder, unspecified; E86.0 Dehydration; F12.90 Cannabis use, unspecified, uncomplicated; E87.6 Hypokalemia

== ENCOUNTER 2019-07-08 10:23 | Emergency (ER) | payer OTHER ==
[~2019-07-08] VITALS: Ht 160 cm; Wt 54.5 kg
[~2019-07-08 10:23] MED LIST changes: +ADOXA100 MG PO; +FERROUS SULFAT325 MG PO; +HYDROXYZINE HCL50 MG PO; +K-DUR20 MEQ PO; +KEFLEX500 MG PO; +KLONOPIN1 MG PO; +OXYCODONE HCL5 M1 PO; +ULTRAM50 MG PO; +VISTARIL50 MG PO; +ZANAFLEX4 MG PO
[2019-07-08 10:27] VITALS: Ht 160 cm; Wt 54.5 kg
[2019-07-08] MEDS ORDERED: OXYCODONE HCL5 M1 PO (11:02)
[2019-07-08 11:12] VITALS: BP 115/64
== END 2019-07-08 11:13 | disposition home or self-care (01) ==
LOC: D.ER 10:23
DX: G89.18 Other acute postprocedural pain (principal); K21.9 Gastro-esophageal reflux disease without esophagitis; M79.601 Pain in right arm

== ENCOUNTER 2019-08-02 10:59 | Emergency (ER) | payer OTHER ==
[~2019-08-02] VITALS: Ht 160 cm; Wt 52.3 kg
[2019-08-02 11:06] VITALS: Ht 160 cm; Wt 52.3 kg
[2019-08-02] MEDS ORDERED: HYDROCODON-ACET15 ML (11:12)
[2019-08-02] MEDS ORDERED: CYCLOBENZAPRINE10 MG (11:12)
[2019-08-02 11:55] LABS: BASOPHILS 0.2 % (0-2); EOSINOPHILS 0.1 % (0-7); HEMATOCRIT 33.9 % (36.0-48.0); IMMATURE GRANULOCYTES 0.3 % (0-5); LYMPHOCYTES 5.7 % (15-50); MCH 30.6 pg (26.0-34.0); MCHC 32.4 g/dL (31.0-37.0); MCV 94.2 fL (80.0-100.0); MEAN PLATELET VOLUME 10.2 fL (7.4-10.4); MONOCYTES 10.7 % (2-11); RDW 15.1 % (11.5-14.5); WBC 13.6 10x3/uL (4.8-10.8)
[2019-08-02 11:59] LABS: PLATELET COUNT 280 10x3/uL (130-400)
[2019-08-02] MEDS ORDERED: HYDROCODON-ACE1 EAC2 PO (12:10)
[2019-08-02] MEDS ORDERED: MACROBID100 MG PO (12:10)
[2019-08-02 12:19] LABS: CALC OSMOLALITY 262 mosm/kg (275-300); CALCIUM 8.8 mg/dL (8.5-10.1); CARBON DIOXIDE 24.4 mmol/L (21.0-32.0); CHLORIDE - SERUM 99 mmol/L (98-107); CREATININE - SERUM 0.6 mg/dL (0.6-1.3); GLUCOSE 120 mg/dL (74-106); POTASSIUM - SERUM 3.2 mmol/L (3.5-5.1); SODIUM 131 mmol/L (136-145); UREA NITROGEN 10 mg/dL (7-18); eGFR NON AFRICAN AMERICAN > 90 mL/min (90-120)
[2019-08-02 12:20] LABS: BACTERIA MANY /hpf (NEGATIVE); BILIRUBIN NEGATIVE (NEGATIVE); EPITHELIAL CELLS 0-5 /hpf (0-5); GLUCOSE NEGATIVE (NEGATIVE); KETONE NEGATIVE (NEGATIVE); NITRITE POSITIVE (NEGATIVE); RED CELLS - URINE 0-5 /hpf (0-5); SPECIFIC GRAVITY 1.005 (1.005-1.020); UROBILINOGEN NORMAL (NORMAL); WHITE CELLS - URINE >50 /hpf (NEGATIVE)
[2019-08-02 12:23] LABS: ALBUMIN 3.2 g/dL (3.4-5.0); ALKALINE PHOSPHATASE 158 U/L (30-120); ALT (SGPT) 61 U/L (10-68); BILIRUBIN - TOTAL 0.84 mg/dL (0.2-1.3); PROTEIN - SERUM 7.5 g/dL (6.4-8.2)
[2019-08-02 12:27] VITALS: BP 129/79
== END 2019-08-02 12:34 | disposition home or self-care (01) ==
LOC: D.ER 10:59
PROVIDERS: Emergency Medicine
DX: R10.9 Unspecified abdominal pain (principal); K21.9 Gastro-esophageal reflux disease without esophagitis

== ENCOUNTER → 2020-07-11 14:47 | Outpatient (CLI) | payer OTHER ==
[2020-05-10 22:05] VITALS: BMI 19.5
[~2020-07-11 14:47] MED LIST changes: +CYCLOBENZAPRINE10 MG; +HYDROCODON-ACE1 EAC2 PO; +HYDROCODON-ACET15 ML
== END | disposition home or self-care (01) ==
LOC: D.CT 14:47
PROVIDERS: ATTEND Nurse Practitioner Family
DX: S42.301A Unspecified fracture of shaft of humerus, right arm, initial encounter for closed fracture (principal)